=== PATIENT | male | born 1970 | race Caucasian/White ===

== ENCOUNTER → 2023-03-01 | Outpatient (CLI) | payer BC ==
--- NOTE | 2023-03-01 18:42 | Diagnostic Imaging Report ---
EXAMINATION: CT abdomen and pelvis without contrast. TECHNIQUE: Multiple contiguous axial images were obtained through the abdomen and pelvis without the use of intravenous contrast. All CT scans use one or more of the following dose optimizing techniques: automated exposure control, MA and/or KvP adjustment based on patient size and exam type or iterative reconstruction. HISTORY: Left lower quadrant pain. COMPARISON: None available. FINDINGS: Limited views of the lower thorax are unremarkable. The liver is normal without focal lesion. There is no biliary ductal dilation. Gallbladder is absent. Pancreas is normal. Spleen is normal. Adrenal glands are normal. The kidneys are normal. There is no hydronephrosis. Urinary bladder is normal. Bowel is normal in caliber without obstruction or inflammation. There is a fat-containing ventral abdominal hernia. No free fluid or air. No abdominal or pelvic lymphadenopathy. Aorta is normal in caliber without aneurysm. There are no suspicious osseus lesions. IMPRESSION: No acute abnormality in the abdomen or pelvis. Dictated by: Dictated on workstation # [id number]
== END ==
LOC: RAD 18:05
PROVIDERS: ATTEND Nurse Practitioner Family
DX: D72.828 Other elevated white blood cell count (principal); E86.0 Dehydration; R11.0 Nausea; K92.1 Melena; R10.32 Left lower quadrant pain
CPT/HCPCS: 74176

== ENCOUNTER 2023-03-08 07:44 | Emergency (ER) | payer BC ==
[~2023-03-08] VITALS: Ht 195 cm; Wt 124.0 kg
[2023-03-08] MEDS ORDERED: NS IV 1000 ML 1,000 ML IV SCH (08:15)
[2023-03-08] MEDS ORDERED: DICYCLOMINE 10 MG (BENTYL) CAP PO SCH (08:15)
--- NOTE | 2023-03-08 08:16 | ED GI ---
General Chief Complaint: Abdominal/GI Problems Stated Complaint: NAUSEA | VOMITING | STOMACH CRAMPS Nursing Triage Note: PT TO ED W/ C/O ABD PAIN, N/V ONSET X3 WKS WORSE TODAY. REPORTS WAS SEEN AT URGENT CARE FOR SYMPTOMS, TREATED W/ ABX, PROTONIX, CARAFATE ET ZOFRAN ET NOTED IMPROVEMENT. REPORTS SYMPTOMS RETURNED LAST NOC AROUND MIDNOC. NO OTHER C/O VOICED. Source of Information: Patient, Family () Exam Limitations: No Limitations History of Present Illness Date Seen by Provider: Mar 08, 2023 Time Seen by Provider: 07:55 Initial Comments 52-year-old male history of diabetes presents to the emergency department today for abdominal cramping, diarrhea. Symptoms present for 2 to 3 weeks. He was initially seen at the walk-in clinic for similar symptoms. He he had a CT scan, full lab work-up and had a slightly elevated white blood cell count on 02/28. He followed up on 03/04 and his white blood cell count had improved and his symptoms are overall improving. He had been treated with antibiotics, Protonix, Carafate and Zofran. Initially given a shot of Rocephin and started on p.o. ciprofloxacin. He states this did not really help his symptoms whatsoever. He was tested for C. difficile and this is come back negative as well he denies any new medications. They did increase his Ozempic dose and he has not taken it for the last couple of days. This may be a side effect of the medicine however his symptoms have not improved. He states multiple watery stools per day, upwards of 10-12. He has nausea and nonbloody nonbilious vomiting as well. Symptoms worsen once again 2 days ago after they had seemingly been improving. All other systems reviewed and negative except documented per HPI. Voice recognition software was used to help create this chart Allergies and Home Medications Allergies Coded Allergies: No Known Drug Allergies (Unverified , 03/08/23) Patient Home Medication List Home Medication List Reviewed: Yes Dicyclomine HCl (Dicyclomine HCl) 20 Mg Tablet, 20 MG PO QID Prescribed by: MAGEN VARGAS MD on 03/08/23 8410 Review of Systems Review of Systems Constitutional: see HPI Past Tlfdmih-Bnnuuk-Zolvxt Hx Patient Social History Tobacco Use?: No Smoking Status: Former Smoker Use of E-Cig and/or Vaping dev: No Substance use?: No Alcohol Use?: Yes Alcohol Frequency: Couple times a week Pt feels they are or have been: No Past Medical History Surgery/Hospitalization HX: [facility] Family Medical History Reviewed Nursing Family Hx No Pertinent Family Hx Physical Exam Vital Signs Vital Signs - First Documented 03/08/23 07:49 Temp 36.5 Pulse 73 Resp 20 B/P (MAP) 144/100 (115) Pulse Ox 99 O2 Delivery Room Air Capillary Refill : Less Than 3 Seconds Height/Weight/BMI Height: '" Weight: lbs. oz. kg; 32.00 BMI Method: General Appearance: WD/WN, no apparent distress HEENT: normal ENT inspection, pharynx normal Neck: non-tender, full range of motion, supple, normal inspection Respiratory: chest non-tender, lungs clear, normal breath sounds, no respiratory distress, no accessory muscle use Cardiovascular: regular rate, rhythm, no murmur Gastrointestinal: normal bowel sounds, soft, no organomegaly, no pulsatile mass Extremities: normal range of motion, non-tender, normal inspection, no pedal edema, no calf tenderness Neurologic/Psychiatric: alert, normal mood/affect, oriented x 3 Skin: normal color, warm/dry Progress/Results/Core Measures Results/Orders Lab Results Laboratory Tests Test 03/08/23 08:10 Range/Units White Blood Count 12.9 H 4.3-11.0 10^3/uL Red Blood Count 5.65 H 4.30-5.52 10^6/uL Hemoglobin 18.3 H 13.3-17.7 g/dL Hematocrit 51 40-54 % Mean Corpuscular Volume 90 80-99 fL Mean Corpuscular Hemoglobin 32 25-34 pg Mean Corpuscular Hemoglobin Concent 36 32-36 g/dL Red Cell Distribution Width 11.5 10.0-14.5 % Platelet Count 232 130-400 10^3/uL Mean Platelet Volume 10.3 9.0-12.2 fL Immature Granulocyte % (Auto) 1 % Neutrophils (%) (Auto) 69 42-75 % Lymphocytes (%) (Auto) 14 12-44 % Monocytes (%) (Auto) 5 0-12 % Eosinophils (%) (Auto) 11 H 0-10 % Basophils (%) (Auto) 0 0-10 % Neutrophils # (Auto) 8.9 H 1.8-7.8 10^3/uL Lymphocytes # (Auto) 1.8 1.0-4.0 10^3/uL Monocytes # (Auto) 0.7 0.0-1.0 10^3/uL Eosinophils # (Auto) 1.4 H 0.0-0.3 10^3/uL Basophils # (Auto) 0.0 0.0-0.1 10^3/uL Immature Granulocyte # (Auto) 0.1 0.0-0.1 10^3/uL Sodium Level 137 135-145 MMOL/L Potassium Level 4.3 3.6-5.0 MMOL/L Chloride Level 104 98-107 MMOL/L Carbon Dioxide Level 23 21-32 MMOL/L Anion Gap 10 5-14 MMOL/L Blood Urea Nitrogen 17 7-18 MG/DL Creatinine 1.34 H 0.60-1.30 MG/DL Estimat Glomerular Filtration Rate 64 BUN/Creatinine Ratio 13 Glucose Level 177 H 70-105 MG/DL Calcium Level 9.7 8.5-10.1 MG/DL Corrected Calcium 9.4 8.5-10.1 MG/DL Total Bilirubin 0.8 0.1-1.0 MG/DL Aspartate Amino Transf (AST/SGOT) 36 H 5-34 U/L Alanine Aminotransferase (ALT/SGPT) 68 H 0-55 U/L Alkaline Phosphatase 61 40-136 U/L Total Protein 7.5 6.4-8.2 GM/DL Albumin 4.4 3.2-4.5 GM/DL Lipase 49 8-78 U/L Micro Results Microbiology 03/08/23 Fecal Leukocyte Stain - Final, Complete My Orders Orders - MAGEN VARGAS DO Cbc With Automated Diff (03/08/23 07:57) Comprehensive Metabolic Panel (03/08/23 07:57) Lipase (03/08/23 07:58) Stool Culture (03/08/23 07:58) Parasite Scrn Stool Giard Cryp (03/08/23 07:58) Fecal Wbc (03/08/23 07:58) Dicyclomine Capsule (Bentyl Capsule) (03/08/23 08:15) Ns Iv 1000 Ml (Sodium Chloride 0.9%) (03/08/23 08:15) Iv/Invasive Line Insertion .IV INSERT (03/08/23 08:09) Vital Signs/I&O 03/08/23 03/08/23 07:49 09:08 Temp 36.5 Pulse 73 71 Resp 20 20 B/P (MAP) 144/100 (115) 124/86 Pulse Ox 99 99 O2 Delivery Room Air Room Air Blood Pressure Mean: 115 Departure Communication (Admissions) Patient is hemodynamically stable. He has a nonsurgical abdominal exam and overall reassuring exam otherwise. His labs are significant for slightly elevated white blood cell count, nonspecific. He has slightly elevated BUN and creatinine as well and he was given IV fluids here. His electrolytes are otherwise unremarkable. He had a CT scan recently with no acute findings. No indication for repeat imaging at this time. He is tolerating p.o. prior to discharge. We did collect a stool sample and sent in for culture, ova and parasite, fecal white blood cells. Impression Primary Impression: Abdominal cramping Additional Impression: Nausea vomiting and diarrhea Disposition: HOME, SELF-CARE Condition: Stable Departure-Patient Inst. Referrals: RICCI GARCIA DO NO,LOCAL PHYSICIAN (PCP) Primary Care Physician Patient Instructions: Nausea and Vomiting, Adult ED Add. Discharge Instructions: Your labs are reassuring. Your white blood cell count is slightly elevated once again. Kidney function is slightly elevated as well however not to a significant level. You were given IV fluids here. Stool cultures are pending at this time and you will be called with those results. Recommend you keep your appoint with Dr. Garcia as scheduled today. Return to the emergency department for any severe concerns. Follow-up with your primary doctor for any nonemergent needs All discharge instructions reviewed with patient and/or family. Voiced understanding. Scripts Dicyclomine HCl (Dicyclomine HCl) 20 Mg Tablet 20 MG PO QID for Abdominal Pain for 5 Days, #20 TAB Prov: MAGEN VARGAS DO 03/08/23 MAGEN VARGAS DO Mar 08, 2023 08:16
[2023-03-08 08:19] LABS: BASOPHILS % (AUTO) 0 % (0-10); EOSINOPHILS # (AUTO) 1.4 10^3/uL (0.0-0.3); EOSINOPHILS % (AUTO) 11 % (0-10); HEMATOCRIT 51 % (40-54); HEMOGLOBIN 18.3 g/dL (13.3-17.7); LYMPHOCYTES # (AUTO) 1.8 10^3/uL (1.0-4.0); LYMPHOCYTES % (AUTO) 14 % (12-44); MEAN CORPUSCULAR HEMOGLOBIN 32 pg (25-34); MEAN CORPUSCULAR HGB CONC 36 g/dL (32-36); MEAN CORPUSCULAR VOLUME 90 fL (80-99); MEAN PLATELET VOLUME 10.3 fL (9.0-12.2); MONOCYTES # (AUTO) 0.7 10^3/uL (0.0-1.0); MONOCYTES % (AUTO) 5 % (0-12); NEUTROPHILS # (AUTO) 8.9 10^3/uL (1.8-7.8); NEUTROPHILS % (AUTO) 69 % (42-75); PLATELET COUNT 232 10^3/uL (130-400); WHITE BLOOD COUNT 12.9 10^3/uL (4.3-11.0)
[2023-03-08 08:29] LABS: ALBUMIN 4.4 GM/DL (3.2-4.5); POTASSIUM 4.3 MMOL/L (3.6-5.0)
[2023-03-08 08:30] LABS: CALCIUM 9.7 MG/DL (8.5-10.1)
[2023-03-08 08:31] LABS: TOTAL PROTEIN 7.5 GM/DL (6.4-8.2)
[2023-03-08 08:33] LABS: BILIRUBIN,TOTAL 0.8 MG/DL (0.1-1.0)
[2023-03-08 08:35] LABS: CREATININE SERUM 1.34 MG/DL (0.60-1.30)
[2023-03-08] MEDS ORDERED: DICY20TA PO (08:57)
[2023-03-08 09:08] VITALS: BP 124/86
== END 2023-03-08 09:08 | disposition home or self-care (01) ==
LOC: EDUNIT# 07:44 → ER 07:46
DX: R12 Heartburn (principal); R19.7 Diarrhea, unspecified; R10.9 Unspecified abdominal pain; R79.89 Other specified abnormal findings of blood chemistry; D72.829 Elevated white blood cell count, unspecified; E11.9 Type 2 diabetes mellitus without complications; Z79.84 Long term (current) use of oral hypoglycemic drugs; Z87.891 Personal history of nicotine dependence
CPT/HCPCS: 36415; 80053; 83690; 85025; 87015; 87045; 87046; 87324; 87328; 87329; 87449; 87899; 89055